=== PATIENT | female | born 1985 | race Caucasian/White ===

== ENCOUNTER 2024-05-05 16:40 | Outpatient (CLI) | payer BC, SELFPAY ==
[2024-05-06 01:17] LABS: Chlamydia DNA Amplified* NOT DETECTED (No Detected); GC DNA Amplified* NOT DETECTED (No Detected)
== END 2024-05-05 16:41 | disposition home or self-care (01) ==
PROVIDERS: Visit Provider Physician Assistant
DX: Z34.91 Encounter for supervision of normal pregnancy, unspecified, first trimester (principal); Z3A.08 8 weeks gestation of pregnancy
CPT/HCPCS: 76817; 86592; 86703; 86704; 86706; 86762; 86787; 86803; 86850; 86900; 86901; 87086; 87340; 87491; 87591

== ENCOUNTER 2024-07-15 09:11 | Outpatient (CLI) | payer BC, SELFPAY | END 2024-07-15 09:12 | disposition home or self-care (01) | LOC: US 09:11 | PROVIDERS: Visit Provider Obstetrics & Gynecology | DX: O09.522 Supervision of elderly multigravida, second trimester (principal); Z3A.18 18 weeks gestation of pregnancy | CPT/HCPCS: 76811 ==

== ENCOUNTER 2024-10-05 08:47 | Outpatient (CLI) | payer BC, SELFPAY | END 2024-10-05 08:48 | disposition home or self-care (01) | LOC: NFLDREF 10-09 02:16 | PROVIDERS: Visit Provider Obstetrics & Gynecology | DX: Z34.93 Encounter for supervision of normal pregnancy, unspecified, third trimester (principal) | CPT/HCPCS: 86592 ==

== ENCOUNTER 2024-10-19 10:13 | Outpatient (CLI) | payer BC, SELFPAY ==
[2024-10-19] VITALS (15 sets, daily range): BP systolic 118–138; BP diastolic 63–80; PULSE 79–91; RESP 16; TEMP 36.9; O2SAT 95
[2024-10-19 10:44] LABS: Hematocrit 39.5 % (33.0-51.0); Hemoglobin* 13.3 gm/dL (12.0-16.0); Mean Corpuscular HGB Conc 34 gm/dL (32-36); Mean Corpuscular Hemoglobin 29 pg (26-34); Mean Corpuscular Volume 86 fL (80-100); Platelet Count* 250 K/uL (140-440); Red Blood Count 4.59 m/uL (4.00-5.20); White Blood Count* 8.46 K/uL (4.50-11.00)
[2024-10-19 10:54] LABS: Slide Review Reflex No
[2024-10-19 10:56] LABS: Alanine Aminotransferase* 15 U/L (4-35); Aspartate Amino Transferase* 19 U/L (12-35); Blood Urea Nitrogen* 6 mg/dL (5-24); Creatinine* 0.4 mg/dL (0.5-1.5); Estimated Glomerular Filt Rate 130 ml/min
[2024-10-19 11:11] LABS: Total Protein Urine < 5 mg/dL
[2024-10-19 11:12] LABS: Creatinine Urine 140.8 mg/dL; Protein Creatinine Ratio Urine 0.04 (0-0.19)
[2024-10-19 11:34] LABS: Appearance Urine Clear (Clear); Bilirubin Urine Negative (Negative); Blood Urine Negative (Negative); Color Urine Yellow (Yellow); Glucose Urine 2+ (Negative); Ketones Urine 2+ (Negative); Leukocyte Esterase Urine Negative (Negative); Nitrite Urine Negative (Negative); Protein Urine Trace (Negative); Specific Gravity Urine 1.025 (1.000-1.030); Urobilinogen Urine 0.2 (0.2-1.0); pH Urine 6.5 (5.0-8.5)
[2024-10-19 11:42] LABS: Bacteria Urine Few; RBC Urine 0-2 (0-2); Squamous Epithelial Cell Urine Many (None-Few)
--- NOTE | 2024-10-19 16:01 | PC.OBNST ---
NST Note NST Note Start: 10/19/24 10:26 Freq: ONCE Status: Active Protocol: Document 10/19/24 13:45 WK (Rec: 10/19/24 16:01 WK Desktop) NST Note 6 Para (# of births) 4 EDC 12/15/24 Gestational Age In Weeks & Days 31 Weeks & 6 Days Patient Presented with Complaint(s) of Other Other Complaints Pt was seen in the clinic for a routine visit and had severe BP's x2. Came to the Center for extended BP monitoring and pre-E labs. Reactive Yes RN Marquise RNC Date 10/19/24 Reactive Yes RN Varsha RN Date 10/19/24 OB NST charge Yes Complete NST Note via Write Note Yes The provider's electronic signature indicates the NST is reactive/appropriate for gestational age. *Note to provider: If an addendum is required, open the patient's chart and click on the note under the Nurse/Allied Health tab.
== END 2024-10-19 14:05 | disposition home or self-care (01) ==
LOC: OB OUT 10:16 → OB 10:18
PROVIDERS: Obstetrics & Gynecology; Visit Provider Obstetrics & Gynecology
DX: O09.523 Supervision of elderly multigravida, third trimester (principal); O24.419 Gestational diabetes mellitus in pregnancy, unspecified control; Z3A.31 31 weeks gestation of pregnancy
CPT/HCPCS: 36415; 59025; 81001; 81003; 82565; 82570; 84156; 84450; 84460; 84520; 85027; 87086; G0463

== ENCOUNTER 2024-10-26 12:57 | Outpatient (CLI) | payer BC, SELFPAY ==
--- NOTE | 2024-10-26 13:00 | CRLHL7_ITS ---
For Patients: As a result of the Century Cures Act, medical imaging exams and procedure reports are released immediately into your electronic medical record. You may view this report before your referring provider. If you have questions, please contact your health care provider. OBSTETRICAL ULTRASOUND CLINICAL HISTORY: GDM, AMA, BMI. KENJI by US: 12/15/2024. GA:32w, 6d. FINDINGS: position: Vertex. Visualized. Technique: Transabdominal. Length of closed cervix: 4.9 cm. Amniotic Fluid: 5.2 cm SDP (greater than/equal to: 2- less than 8 cm). BPD: 8.3 cm. 33w 1d, 53.0 percent. HC: 32.1 cm. 36w 2d, 91.6 percent. AC: 31.5 cm. 35w 3d, 79.7 percent. FL: 6.1 cm. 31w 5d, 12.9 percent. FL/AC: 19.4 percent. HC/AC Ratio: 1.02. Heart rate: 145 beats per minute. age by this US: 34w 1d. KENJI by this US: 12/06/2024 EFW: 2396g. Weight: 5lbs, 5oz. Percentile by KENJI: 83.5 percent. IMPRESSION: Single live intrauterine gestation at 34 weeks 1 day KENJI of 12/06/2024. Estimated weight 2396 grams which lies at the 84th percentile. Joann Perez M.D. Diagnostic/Breast Radiologist [email or web address] Transcribed: 8:55 a.m. JR/Dictated by: Joann Perez MD @ 10/27/2024 5:55:00 AM (Electronically Signed)
== END 2024-10-26 12:58 | disposition home or self-care (01) ==
LOC: US 12:57
PROVIDERS: Visit Provider Obstetrics & Gynecology
DX: O24.419 Gestational diabetes mellitus in pregnancy, unspecified control (principal); O09.523 Supervision of elderly multigravida, third trimester; Z3A.34 34 weeks gestation of pregnancy
CPT/HCPCS: 76816

== ENCOUNTER 2024-11-02 13:52 | Outpatient (CLI) | payer BC, SELFPAY ==
--- NOTE | 2024-11-02 14:00 | CRLHL7_ITS ---
For Patients: As a result of the Century Cures Act, medical imaging exams and procedure reports are released immediately into your electronic medical record. You may view this report before your referring provider. If you have questions, please contact your health care provider. OBSTETRICAL ULTRASOUND - BIOPHYSICAL PROFILE INDICATION: GDMA2 KENJI by US: 12/15/2024 Gestational age: 33 weeks 6 days GESTATION: Single COMPARISON: 10/26/2024 TECHNIQUE: Real-time peters-scale imaging of the fetus was performed transabdominal. FINDINGS: Cervix: Not visualized positioning: Vertex Amniotic fluid: 6.4 cm SDP BIOPHYSICAL PROFILE: Total score: 8 Gross body movements: 2 tone: 2 Respiratory activity: 2 Amniotic fluid SDP: 2 Placenta technique: Transabdominal Placenta position: Anterior heart rate: 147 bpm IMPRESSION: Normal biophysical profile score of 8/8. FISH SON M.D. Diagnostic Radiologist [email or web address] Transcribed: 4:[address]/Dictated by: Fish Son MD @ 11/02/2024 3:12:00 PM (Electronically Signed)
== END 2024-11-02 13:53 | disposition home or self-care (01) ==
LOC: US 13:52
PROVIDERS: Visit Provider Obstetrics & Gynecology
DX: O24.419 Gestational diabetes mellitus in pregnancy, unspecified control (principal); Z3A.33 33 weeks gestation of pregnancy
CPT/HCPCS: 76819

== ENCOUNTER 2024-11-10 09:15 | Outpatient (CLI) | payer BC, SELFPAY ==
--- NOTE | 2024-11-10 09:15 | CRLHL7_ITS ---
For Patients: As a result of the Cures Act, medical imaging exams and procedure reports are released immediately into your electronic medical record. You may view this report before your referring provider. If you have questions, please contact your health care provider. OB ULTRASOUND BIOPHYSICAL PROFILE 11/10/2024 CLINICAL HISTORY: GDMA 2. TECHNIQUE: Transabdominal real time peters scale imaging of the fetus was performed. COMPARISON: 11/02/2024, 10/26/2024. FINDINGS: KENJI by US: 12/15/2024. GA: 35 weeks 0 days. Gestation: Single. Cervix: Not visualized. Position: Vertex. Amniotic Fluid: 4.8 cm. Placenta: Technique: TA. Placenta Position: Anterior. Dopplers: Heart Rate: 145 bpm. BIOPHYSICAL PROFILE: Total Score: 8 Gross Body Movements: 2 Tone: 2 Respiratory Activity: 2 Amniotic Fluid: 2 IMPRESSION: Normal biophysical profile score of 8/8. Fish Kirk M.D. Diagnostic Radiologist [email or web address] Transcribed: 11:36 am DW/Dictated by: Fish Kirk MD @ 11/10/2024 10:26:00 AM (Electronically Signed)
== END 2024-11-10 09:16 | disposition home or self-care (01) ==
LOC: US 09:16
PROVIDERS: Visit Provider Obstetrics & Gynecology
DX: O24.419 Gestational diabetes mellitus in pregnancy, unspecified control (principal); Z3A.35 35 weeks gestation of pregnancy
CPT/HCPCS: 76819

== ENCOUNTER 2024-11-16 12:55 | Outpatient (CLI) | payer BC, SELFPAY ==
--- NOTE | 2024-11-16 13:00 | CRLHL7_ITS ---
For Patients: As a result of the Cures Act, medical imaging exams and procedure reports are released immediately into your electronic medical record. You may view this report before your referring provider. If you have questions, please contact your health care provider. OBSTETRICAL ULTRASOUND ??? BIOPHYSICAL PROFILE INDICATION: Gestation diabetes mellitus. Advanced maternal age. KENJI by US: 12/15/2024 Gestational age: 35 weeks 6 days FETUS: Single COMPARISON: 11/10/2024, 11/02/2024, 10/26/2024. TECHNIQUE: Real-time peters-scale imaging of the fetus was performed transabdominal. FINDINGS: Cervix: Not visualized positioning: Vertex Amniotic fluid: 4.8 cm SDP BIOPHYSICAL PROFILE: Total score: 8 Gross body movements: 2 tone: 2 Respiratory activity: 2 Amniotic fluid SDP: 2 Placenta technique: Transabdominal Placenta position: Anterior heart rate: 138 bpm IMPRESSION: Normal biophysical profile score of 8/8. FISH SON M.D. Diagnostic Radiologist [email or web address] Transcribed: 3:[address]/Dictated by: Fish Son MD @ 11/16/2024 2:02:00 PM (Electronically Signed)
== END 2024-11-16 12:56 | disposition home or self-care (01) ==
LOC: US 12:56
PROVIDERS: Visit Provider Obstetrics & Gynecology
DX: O24.419 Gestational diabetes mellitus in pregnancy, unspecified control (principal); O09.523 Supervision of elderly multigravida, third trimester; Z3A.35 35 weeks gestation of pregnancy
CPT/HCPCS: 76819

== ENCOUNTER 2024-11-16 14:06 | Outpatient (CLI) | payer BC, SELFPAY ==
[2024-11-17 11:04] LABS: Strep B Susceptibility Needed? No
[2024-11-17 15:16] LABS: Strep B DNA Probe Negative (Negative)
== END 2024-11-16 14:07 | disposition home or self-care (01) ==
PROVIDERS: Visit Provider Obstetrics & Gynecology
DX: Z34.83 Encounter for supervision of other normal pregnancy, third trimester (principal)
CPT/HCPCS: 82565; 82570; 84156; 84450; 84460; 84520; 87081; 87653

== ENCOUNTER 2024-11-20 09:10 | Outpatient (CLI) | payer BC, SELFPAY | END 2024-11-20 09:11 | disposition home or self-care (01) | PROVIDERS: Visit Provider Obstetrics & Gynecology | DX: Z34.93 Encounter for supervision of normal pregnancy, unspecified, third trimester (principal); Z3A.36 36 weeks gestation of pregnancy | CPT/HCPCS: 82565; 82570; 84156; 84450; 84460; 84520; 84550 ==

== ENCOUNTER 2024-11-24 05:45 | Inpatient (IN) | payer BC, SELFPAY ==
[2024-11-24] VITALS (19 sets, daily range): BP systolic 106–133; BP diastolic 67–81; PULSE 62–80; RESP 16–18; TEMP 36.4–37.6; O2SAT 96–99; BMI 33.5
[2024-11-24] MEDS: LACTATED RINGERS 1000 ML 1,000 ML IV (06:15)
[2024-11-24 06:23] LABS: Basophils Absolute Auto 0.04 K/uL (0.00-0.30); Basophils Percent Auto 0.5 % (0.0-3.0); Eosinophils Percent Auto 1.4 % (0.0-7.0); Hematocrit 37.3 % (33.0-51.0); Hemoglobin* 12.5 gm/dL (12.0-16.0); Immature Granulocytes Abs Auto 0.05 K/uL (0.00-0.30); Immature Granulocytes Pct Auto 0.7 %; Lymphocytes Absolute Auto 1.74 K/uL (0.90-2.90); Lymphocytes Percent Auto 23.7 % (20-44); Mean Corpuscular HGB Conc 34 gm/dL (32-36); Mean Corpuscular Hemoglobin 29 pg (26-34); Mean Corpuscular Volume 86 fL (80-100); Monocytes Percent Auto 7.6 % (0.0-11.0); Neutrophils Absolute Auto 4.84 K/uL (1.7-7.0); Neutrophils Percent Auto 66.1 % (42.0-72.0); Platelet Count* 248 K/uL (140-440); Red Blood Count 4.35 m/uL (4.00-5.20); White Blood Count* 7.33 K/uL (4.50-11.00)
[2024-11-24 06:24] LABS: Slide Review Reflex No
--- NOTE | 2024-11-24 07:08 | P.OBHP_ITS ---
OB - H&P: HPI History of Present Illness Chief complaint: MATERNITY Narrative: Megha Vo is a 39 year old female at 37w0d GA seen in pre-op prior to planned repeat and bilateral salpingectomy. is complicated by history of C/S x4 (thin ABHINAV), preeclampsia without severe features, AMA, GDMA1, obesity, suspected perimembranous VSD that appeared to be resolved on subsequent US. Her complete H&P was dictated by Dr. Carlos on 11/16/23. Patient is feeling well today, though somewhat anxious for 1st surgery. She denies any regular/painful uterine contractions, vaginal bleeding or leaking of fluid. She has had brown spotting for the last few days but denies any liam bleeding. She denies headache, vision changes or RUQ pain. BPs at home have been within normal limits. She notes her blood glucose have continued to be adequately controlled with diet/exercise. Patient affirms her decision for repeat with bilateral salpingectomy (versus tubal ligation, only if I cannot safely accessible tube) this morning. We discussed risks of the procedure including bleeding, infection, damage to surrounding structures in detail. Emphasized how these risks are increased in the setting of 4 prior C/S, but that there are many safety steps in the procedure to minimize these risks. All questions answered. Written consent was signed. Specific Issues/Plans Partner: Vicente Children: Luis, Milana, Jerome and Natasha. Baby: Boy! H&P: 11/16/[address] Carlos # History of x4 * Thin uterine segment was noted at time of last * Initial for impacted head, failed with 2nd for intolerance to labor * Likely bilateral salpingectomy at time of repeat as of 09/21 * Delivery at 38 weeks. #10/19/24 Elevated BP without diagnosis of HTN - severe range at 31w6d -> triage - BP's on L&D 130s/60s-70s - Labs: Plts 250K, BUN 6, creatinine 0.4, AST 19, ALT 15 Urine P/C: 0.04 - elevated blood pressure and PC ratio 0.41 on 11/16/2024, diagnosis made of PREECLAMPSIA WITHOUT SEVERE FEATURES. Recommend moving up delivery to 37 weeks gestation, on . - BEGIN TWICE WEEKLY ANTEPARTUM TESTING AND HOME BLOOD PRESSURE MONITORING #GDM - only started monitoring at 32 weeks * 1hr gtt 207 * Nutrition consult placed: 10/05/24, completed 10/19/24 * All fasting values elevated on 10/26 (95-126mg/dL) and 6/12 postprandial values elevated. PP values have improved since nutrition consult * Refer to January for insulin initiation - likely just NPH at bedtime given elevated fasting values and time sensitive nature of GDMA2 * 11/02: Improved blood sugars. only 2 out of last 8 fastings were elevated. Only 3/ post prandials elevated. Will re-evaluate in 1 week, education was provided so we can start insulin at any time * Recommended twice weekly testing per protocol for GDMA2, after shared decision making will do once weekly * 11/10: All fastings were normal. 12/25 post prandials mildly elevated. Will continue with diet and exercise treatment only and re-evaluate in 1 week. * Delivery @ 39 - 40.6 weeks (patient will be delivered at 38 weeks for hx of CD x4) # AMA * cf DNA testing: No increased risk for aneuploidy. Male. * Level 2 ultrasound: membranous VSD as described below # basal cell skin cancer/face, has upcoming Mohs procedure: cancelled, will do after . # obesity, BMI 32.9 * Hgb A1-C: 5.4% # Suspected perimembranous ventricular septal defect on level 2 US. * echo with [facility] 07/20/2024: Possible small perimembranous VSD, everything else is normal. Repeat echo in 6 weeks on 08/28/24 * 07/15/2024 Cell free DNA screening: no increased risk for aneuploidy, male. * Repeat ultrasound here with [facility] in 4 weeks to re-evaluate growth and anatomy: Patient declined due to financial reasons but has a repeat LVL 2 on 08/14/24. * 07/17/24: Likely small perimembranous ventricular septal defect, otherwise normal cardiac anatomy. Follow-up echo is recommended in 6 weeks (schedule for 08/28/24) Level 2 ultrasound 07/15/2024: Anterior placenta without previa, normal fluid, AC 67%, EFW 39%. Suspected perimembranous ventricular septal defect. Growth US at 33 weeks given GDMA2: EFW 2396g at 84%ile. . Immunizations: Flu: 07/27/24 COVID: 07/27/24 RSV: 10/26/24 Tdap: 10/05/24 Hgb: 11/10/24 12.7 GBS: 11/16/2024 PFSH PFS Surgical History History of ?Z98.891 - History of uterine scar from previous surgery (ICD-10) Social History Narrative: Occupation: [employer] mom. Marital status: . Catholic/cultural needs: Yes, will need to clarify. Chemical or radiation exposure: no. Pre- tobacco use: no. Pre- alcohol use: no. Current tobacco use: no. Current alcohol use: no. Recreational drug use: no. Dietary restrictions: no. Blood transfusion acceptable in an emergency: yes. PSYCHOSOCIAL HISTORY: History of depression or currently depressed: no. Current or past physical, emotional, or sexual mistreatment: no. Problems that will make it hard to make it to appointments: no. What is your current living situation?: I presently have a place to live Problems where you live: no known problems In the past 12 months, utilities in danger of being shut off: no In past 12 months, lack of transportation kept you from medical appts, meetings, work, or getting things needed for daily living: no In the past 12 mos, have been you worried that your food would run out before you had money to buy more?: never true In the past 12 mos, the food you bought just didn't last and you didn't have money to buy more?: never true Smoking Status: Never smoker How often does anyone, including family, friends and others, physically hurt you : never How often does anyone, including family, friends and others, insult or talk down to you: never How often does anyone, including family, friends and others, threaten you with harm: never How often does anyone, including family, friends and others, scream or curse at you: never Meds Home Medications and Allergies Home Medications ?Medication ?Instructions ?Recorded ?Confirmed ?Type GWY-avus-PE-omega 3-fat com #1 27 1 cap PO DAILY 05/05/24 11/24/24 History mg-1 mg-300 mg capsule Allergies Allergy/AdvReac Type Severity Reaction Status Date / Time No Known Drug Allergies Allergy Verified 11/20/24 07:57 OB - H&P: Exam Physical Exam: Vital signs: Temp Pulse BP 99.7 F H 80 127/74 11/24/24 06:26 11/24/24 06:26 11/24/24 06:26 Narrative: Physical exam: General: No acute distress Psych: Alert and oriented x3, full affect Abdomen: Gravid. Otherwise soft and nontender. heart rate: Reactive NST. Baseline of 130 beats per minute, moderate variability, accelerations present, decelerations absent. OB - Results Labs Labs: Short CBC 11/24/24 Range/Units 06:15 WBC 7.33 (4.50-11.00) K/uL Hgb 12.5 (12.0-16.0) gm/dL Hct 37.3 (33.0-51.0) % Plt Count 248 (140-440) K/uL Assessment and Plan Assessment and plan (1) Pre-eclampsia affecting , antepartum: Status: Acute (2) Gestational diabetes: Status: Acute (3) care: Status: Acute (4) Previous delivery affecting : Problem comment: X 4 Status: Acute (5) AMA (advanced maternal age) multigravida 35+: Status: Acute Plan Proceed with repeat delivery and bilateral salpingectomy, written consent obtained. Plan perioperative Ancef. Blood type O positive, active type and screen was drawn this morning. Diligent blood pressure monitoring ongoing. Plan to 2 hour GTT in the hospital vs at 2 or 6 week visits.
[2024-11-24 07:31] LABS: Creatinine* 0.5 mg/dL (0.5-1.5); Est. Creatinine Clearance* 115.12; Estimated Glomerular Filt Rate 123 ml/min
[2024-11-24 07:32] LABS: Alanine Aminotransferase* 10 U/L (4-35); Aspartate Amino Transferase* 16 U/L (12-35); Blood Urea Nitrogen* 6 mg/dL (5-24)
[2024-11-24] MEDS: CEFAZOLIN 2 GM INJ IVP (07:35)
[2024-11-24] MEDS: LACTATED RINGERS 500 ML 500 ML 125 ML IV ×2 (07:42→11:45)
[2024-11-24] MEDS: KETOROLAC 30 MG/ML inj IVP ×3 (08:37→20:32)
--- NOTE | 2024-11-24 08:56 | PM.OBPRCCS ---
Procedure Date of procedure: 11/24/[address] [facility] bill your pro fee for this procedure?: Yes Blood Loss Measurement Type: QBL (436) Bakri Used: No IV fluids (mL): 1,400 Urine Output (mL): 50 Urine Output Comment: Clear, yellow Surgeon: Osiel Mackenzie MD Civil Engineering Drafter: Rena Ford Anesthesia Type: Spinal Findings: Thickening of the rectus abdominis fascia and musculature consistent with adhesions Unremarkable uterus, bilateral fallopian tubes and ovaries Liveborn male fetus Procedure Name: Repeat delivery, bilateral salpingectomy Procedure Description: Patient was taken to the operating room with IV running. She received cefazolin in preoperative prophylaxis. Spinal anesthesia was administered. Hugo catheter was inserted. She was prepped and draped in the usual sterile fashion. Anesthesia was tested and found to be adequate. A low-transverse skin incision was made with a scalpel through a prior incision, and carried through to the underlying layer of fascia with the scalpel. The subcutaneous fat was dissected off the underlying fascia with Bovie and blunt dissection. The fascia was nicked in the midline with a scalpel, and this incision was extended laterally with scissors. The rectus muscles were in the midline, moderate adhesive disease noted. A krishan clamp was utilize to bluntly dissect the peritoneum, ultimately identified and entered bluntly. Bovie was used to widen this opening laterally. Abraham O retractor was inserted and tightened down, providing excellent visualization of the lower uterine segment. The bladder reflection was found to be advanced along the lower uterine segment. A bladder flap was created with a combination of sharp and blunt dissection. Low-transverse uterine incision was made with a scalpel. Incision was widened bluntly. The infant's head was grasped through the hysterotomy and elevated to the hysterotomy. The remainder of the body delivered without incident with the help of fundal pressure. No nuchal cord was noted. Cord was clamped and cut after 30 seconds. was handed off to attending nurses. The placenta was delivered with gentle traction on the cord. The uterus was cleaned of all clots and debris with the dry lap pad x2. The hysterotomy was reapproximated with 0 Vicryl in a running, locked fashion. Second layer of the same suture was used in imbricating fashion to obtain hemostasis. Ongoing bleeding was noted from a vessel just lateral to the left hysterotomy closure. The posterior aspect of the uterus and broad ligament was reflected posteriorly with gentle pressure. A window in the broad ligament was developed with gentle pressure, where an [place] stitch with 0 vicryl was performed from the left lateral uterine body just inferior to hysterotomy closure out through the broad. A figure of eight stitch was applied and secured. Inspection of the site confirmed excellent hemostasis, the posterior uterus and broad ligament was inspected and noted to be clear. The adnexa were examined and noted to be normal in appearance. Patient affirmed her desire to be surgically sterilized. Attention was first turned to the right fallopian tube, which was sequentially ligated and transected from the mesosalpinx using the Ligasure cautery device. We proceeded from the fimbriated end, lateral to medial, and the tube was amputated at the right uterine cornua. The same procedure was repeated on the patient's left side, and the left fallopian tube was also amputated at the cornua. Both specimens were sent for pathologic evaluation. The cul-de-sac and gutters were cleansed with dampened laparotomy sponge, removing any further clots and debris. Excellent hemostasis was noted at all surgical sites. The Abraham O retractor was removed. The hysterotomy was reexamined and found to be hemostatic. The rectus muscles were examined and found to be hemostatic. The fascia was reapproximated with looped 0 PDS in a running fashion. Subcutaneous fat was irrigated and Bovie used on oozing vessels. The subcutaneous fat was reapproximated with 2 0 vicryl suture in an interrupted fashion. The skin was closed with a subcuticular stitch of 3-0 monocryl. Surgical glue was applied above this. Patient tolerated procedure well was taken to recovery area in stable condition. Surgical debrief was completed. details: - Liveborn male fetus - weight: 6lb 9oz - APGARs were 7 and 9 at 1 and 5 minutes respectively Complications: None Pathology: specimen obtained, sent to pathology Surgery Debrief Performed: Yes Condition: stable Disposition: floor Infant total score - 1 minute: 7 total score - 5 minute: 9
--- NOTE | 2024-11-24 08:57 | P.ANES_ITS ---
Anesthesia Charges Start Date/Time Anesthesia Start Date: 11/24/24 Anesthesia Start Time: 07:16 Stop Date/Time Anesthesia Stop Date: 11/24/24 Anesthesia Stop Time: 08:55 Coding CPT Codes CPT Codes: ANESTH CS DELIVERY - 54993 ([id number]) P2 - PATIENT W/MILD SYST DISEASE, QK - TEACHER OF THE VISUALLY IMPAIRED 2-4 CNCRNT ANES PROC, QX - BACK TACKER SVC W/ MD MED DIRECTION
--- NOTE | 2024-11-24 08:57 | W.ANESCHARGE ---
Anesthesia Charges Start Date/Time Anesthesia Start Date: 11/24/24 Anesthesia Start Time: 07:16 Stop Date/Time Anesthesia Stop Date: 11/24/24 Anesthesia Stop Time: 08:55 Coding CPT Codes CPT Codes: ANESTH CS DELIVERY - 70051 ([id number]) P2 - PATIENT W/MILD SYST DISEASE, QK - VISION MIXER 2-4 CNCRNT ANES PROC, QX - COORDINATOR OF LIBRARY SERVICES SVC W/ MD MED DIRECTION
--- NOTE | 2024-11-24 08:59 | P.ANES_ITS ---
Anesthesia Charges Start Date/Time Anesthesia Start Date: 11/24/24 Anesthesia Start Time: 07:16 Stop Date/Time Anesthesia Stop Date: 11/24/24 Anesthesia Stop Time: 08:55 Coding CPT Codes CPT Codes: ANESTH CS DELIVERY - 58878 ([id number]) QK - PROPOSAL REVIEW ANALYST 2-4 CNCRNT ANES PROC, QX - FOOD CROPS FARM HAND SVC W/ MD MED DIRECTION, P2 - PATIENT W/MILD SYST DISEASE
--- NOTE | 2024-11-24 08:59 | W.ANESCHARGE ---
Anesthesia Charges Start Date/Time Anesthesia Start Date: 11/24/24 Anesthesia Start Time: 07:16 Stop Date/Time Anesthesia Stop Date: 11/24/24 Anesthesia Stop Time: 08:55 Coding CPT Codes CPT Codes: ANESTH CS DELIVERY - 38669 ([id number]) QK - CONCRETE FINISHING MACHINE OPERATOR 2-4 CNCRNT ANES PROC, QX - GLOBAL SUPPLY CHAIN DIRECTOR SVC W/ MD MED DIRECTION, P2 - PATIENT W/MILD SYST DISEASE
--- NOTE | 2024-11-24 09:00 | W.PM.NB ---
Nerve Block Nerve Block Time Seen by Provider: 08:45 Date Seen: 11/24/24 Type of block requested by surgeon for post-operative analgesia: TAP Side: bilateral Time out performed: Yes Verification of patient name: Yes Verification of date of : Yes Site marking: site marked Name of person performing procedure: Noe Messina Continuous monitoring Was continuous monitoring of O2 sat, B/P, deputy sheriff generalist/bailiff, recorded every 15 minutes?: Yes Procedure Checklist: sterile prep, needles and gloves Ultrasound guided. Images saved: Yes Medications given in 5ml increments after negative aspiration: Marcaine %: 0.25 mL: 30 Needle gauge: 20 and Exparel mL: 10 Needle gauge: 20 Patient tolerated procedure well: Yes Additional comments: Injected in 5 mL increments after negative aspiration Block Charges Block Charge (with Pro Fee): TAP Bilateral Use of Ultrasound Machine for Block: Yes- US Guidance/pain block
[2024-11-24] MEDS: ACETAMINOPHEN 500 MG TABLET 1000 MG PO ×2 (10:35→18:25)
[2024-11-24 12:03] LABS: Total Protein Urine 32 mg/dL
[2024-11-24 12:04] LABS: Creatinine Urine 60.9 mg/dL; Protein Creatinine Ratio Urine 0.53 (0-0.19)
[2024-11-24] MEDS: SODIUM CHLORIDE 0.9 % (FLUSH) 10 ML SYRINGE IVF (20:32)
[2024-11-25 00:16] VITALS: BP 124/74; PULSE 74; RESP 16; TEMP 36.8; O2SAT 97
[2024-11-25] MEDS: ACETAMINOPHEN 500 MG TABLET 1000 MG PO ×3 (00:21→18:09)
[2024-11-25] MEDS: KETOROLAC 30 MG/ML inj IVP ×3 (02:36→15:19)
[2024-11-25 03:50] VITALS: BP 119/77; PULSE 79; RESP 20; TEMP 36.3; O2SAT 97
[2024-11-25 06:33] LABS: Hemoglobin* 10.7 gm/dL (12.0-16.0)
[2024-11-25 07:53] VITALS: BP 118/81; PULSE 78; RESP 16; TEMP 36.6; O2SAT 97
[2024-11-25] MEDS: DOCUSATE SODIUM 100 MG CAPSULE PO (09:17)
--- NOTE | 2024-11-25 11:28 | P.OBPN_ITS ---
OB - PN:Subj Subjective Date Seen: 11/25/24 Narrative: Megha is a 39 y.o. who was admitted to L & D for repeat C/S.? She had an uncomplicated repeat .? ?She was diagnosed with GDMA1 during her and preeclampsia. Blood pressures are stable and fasting glucose is 85 today. Planning to do 2 hour gtt tomorrow morning. The patient feels well.? The pain is well controlled with current medications.? She has no new complaints.? She is breast feeding and reports things are going well.? the patient has done well.? Vitals have been stable.? She has remained afebrile.? Has a good appetite, is tolerating a general diet.? She is voiding without difficulty.? She is passing gas and has not had a bowel movement.? She is ambulating and denies any dizziness.? Has Small amount of rubra lochia.? OB - PN: Obj Exam 2 Physical Exam: Vital signs: Temp Pulse Resp BP Pulse Ox O2 Del Method 97.8 F 78 16 118/81 97 Room Air 11/25/24 07:53 11/25/24 07:53 11/25/24 07:53 11/25/24 07:53 11/25/24 07:53 11/25/24 07:53 Narrative: GENERAL APPEARANCE:? normal affect, alert, no distress MOOD:? appropriate CHEST:? clear to auscultation HEART:? regular rate and rhythm ABDOMEN:? soft, non-tender the uterine fundus is firm At Umbilicus, Midline and is appropriate for the stage of recovery. EXTREMITIES:? normal and trace edema Incision: dressing clean dry and intact, due to be removed today. OB - PN: Obj Data Labs Labs: Laboratory Results - last 24 hr 11/24/24 11/25/24 Unknown 06:14 Hgb 10.7 L Urine Creatinine 60.9 Protein/Creatinin Ratio 0.53 H Urine Total Protein 32 OB - PN: A/P Delivery Assessment and Plan (1) Pre-eclampsia affecting , antepartum: Status: Acute (2) Gestational diabetes: Status: Acute (3) care: Status: Acute (4) Previous delivery affecting : Problem details: X 4 Status: Acute (5) AMA (advanced maternal age) multigravida 35+: Status: Acute (6) care following delivery: Status: Acute (7) care and examination of lactating mother: Status: Acute Plan day: 1 Plan: routine care Comments: Assessment/Plan?G 6 P 5 status post uncomplicated repeat .? ?? 1.? Continue route PP cares? 2.? .? May see if desired? 3.? Anticipate discharge home tomorrow or the following day per pt preference? 4.? Acute anemia.? Iron supplement ordered 5. 2 hour GTT tomorrow morning, discussed with patient?
[2024-11-25 12:22] VITALS: BP 113/72; PULSE 76; RESP 18; O2SAT 98
[2024-11-25] MEDS: SODIUM CHLORIDE 0.9 % (FLUSH) 10 ML SYRINGE IVF (15:19)
[2024-11-25 16:36] VITALS: BP 119/76; PULSE 74; RESP 18; O2SAT 97
[2024-11-25 20:18] VITALS: BP 129/82; PULSE 76; RESP 16; TEMP 36.7; O2SAT 98
[2024-11-25] MEDS: IBUPROFEN 600 MG TABLET PO (21:21)
[2024-11-26] MEDS: ACETAMINOPHEN 500 MG TABLET 1000 MG PO ×3 (00:15→13:21)
[2024-11-26 00:17] VITALS: BP 122/82; PULSE 71; RESP 16; TEMP 36.9
[2024-11-26 02:30] LABS: Rapid Plasma Reagin (RPR) Non Reactive (Non Reactive)
[2024-11-26] MEDS: IBUPROFEN 600 MG TABLET PO ×2 (03:31→10:10)
[2024-11-26 03:40] VITALS: BP 117/81; PULSE 70; RESP 18; TEMP 36.6
[2024-11-26 06:37] LABS: Glucose Fasting 77 mg/dl (70-95)
[2024-11-26 08:35] LABS: Glucose 2 Hour 161 mg/dl (70-155)
--- NOTE | 2024-11-26 08:41 | PM.OBDSVD1 ---
Documented by User: Sabi Murphy 11/26/24 08:55 DS: Providers Provider Time Seen by Provider: 08:41 Date Seen: 11/26/24 Date of admission: 11/24/24 05:45 Primary care physician: Not a Local Provider Admitting Clinician: Sadie Mackenzie MD Attending Physician on discharge: Ninoska Frye Date of Discharge: 11/26/24 DS: Diagnosis Discharge Diagnosis (1) care and examination of lactating mother: Status: Acute (2) care following delivery: Status: Acute (3) Gestational diabetes: Status: Acute (4) Pre-eclampsia affecting , antepartum: Status: Acute Exam Narrative: Exam Narrative: Discharge instructions were reviewed with the patient including signs and symptoms of infection and home going medications Lifting Restrictions: 20 pounds for 6 weeks No not submerge incision under water X 2 weeks? Nothing vaginally for 6 weeks: no tampons or intercourse Do not drive while taking narcotic pain medication(s) Off Work or School for 8 weeks 2-week visit: incision check, discuss infant feeding concerns, review control options and screen for anxiety/depression. 6-week visit for an annual exam. consultation services are available to all mothers and babies for the first year after delivery.? To make an appointment, please call [phone]. Const: Vital Signs, click to edit/add: Vital Signs - 24 hr 11/25/24 12:22 11/25/24 16:36 11/25/24 20:18 Temperature 98.1 F Pulse Rate [Pulse Oximeter] 76 74 76 Respiratory Rate 18 18 16 Blood Pressure [Ri ght Arm] 113/72 119/76 129/82 Pulse Oximetry 98 97 98 Oxygen Delivery Me thod Room Air Room Air Room Air 11/26/24 00:17 11/26/24 03:40 Temperature 98.5 F 97.8 F Pulse Rate [Pulse Oximeter] 71 70 Respiratory Rate 16 18 Blood Pressure [Ri ght Arm] 122/82 117/81 Pulse Oximetry Oxygen Delivery Me thod Room Air Room Air OB - DS: Summary Hospital Course Hospital Course: The patient is a 39 year old G 6 P 5 at 37 weeks gestation that was admitted to the Center on 11/24/24 for repeat Caesarean section with bilateral salpingectomy. Procedure had no complications She delivered a viable male infant. She is breast feeding. the patient has done well. Peripartum Data Infant delivery method: Repeat Section Procedures: Procedures Operation Date: 11/24/24 07:15 Actual Procedure Side Surgeon p Repeat Section, bilateral salpingectomy Sadie Mackenzie MD Procedures: tubal ligation/salpingectomy complications: none [place] Infant Gender: Male Infant Discharge Plan: Home Status at Discharge Functional status at discharge: independent ambulation Overall status at discharge: patient is progressing back to baseline Time Spent with Patient Time attestation: Total time spent providing and/or coordinating discharge services: Time spent: Less than 30 minutes Discharge Plan Discharge Disposition: Home, Self-Care Date of Admission: 11/24/24 05:45 Attending Provider on Discharge: Ninoska Frye Primary Care Provider: Provider,Not a Local Condition: Stable Anticipated Discharge Date/Time: 11/26/24 12:00 Discharge Medications: New docusate sodium 100 mg Capsule 100 mg PO DAILY Qty: 90 0RF ibuprofen 600 mg Tablet 600 mg PO Q6H PRN (Reason: Pain) Qty: 60 0RF acetaminophen 500 mg Tablet 1,000 mg PO Q6H PRN (Reason: Pain) Qty: 0 0RF Continued [id number] 3-fat com #1 27-1-300 mg capsule 1 cap PO DAILY Discontinued (DME) Blood Pressure Cuff Misc See Rx Instructions .Route Qty: 1 0RF Rx Instructions: As directed (DME) lancets Misc See Rx Instructions .MEDSUPPLY Qty: 100 3RF Rx Instructions: Test blood sugar 4 times daily. (DME) Test Strips Misc See Rx Instructions .MEDSUPPLY Qty: 100 3RF Rx Instructions: Test blood sugar 4 times daily. (DME) blood-glucose meter [Accu-Chek Guide Me Glucose Mtr] Misc See Rx Instructions .ROUTE .COMPLEX Qty: 1 0RF Dose Instruction: DIRECTED Rx Instructions: DIRECTED Discharge Orders: Discharge Order (Routine); Ordered 11/26/24 Ordered By: Ninoska Frye Patient Education: OB Over the Counter Medication Information, OB /Breast Feeding Additional Instructions: Discharge instructions were reviewed with the patient including signs and symptoms of infection and home going medications Lifting Restrictions: 20 pounds for 6 weeks No not submerge incision under water X 2 weeks? Nothing vaginally for 6 weeks: no tampons or intercourse Do not drive while taking narcotic pain medication(s) Off Work or School for 8 weeks [facility] for a BP check?3-5 DAYS Call with BP greater than or equal to 160/110 Severe headache that doesn't improve after taking medications Changes in vision, including temporary loss of vision, blurred vision, and/or light sensitivity Upper abdominal pain (usually under ribs on the right side) 2-week visit: incision check, discuss infant feeding concerns, review control options and screen for anxiety/depression. 6-week visit for an annual exam. consultation services are available to all mothers and babies for the first year after delivery.? To make an appointment, please call [phone]. Activity Level: Activity as Tolerated Discharge Diet: Regular Follow Up Appointments: [facility] [Provider Group] Forms: [employer] Info Instructions Documented by User: Ninoska Frye CNM 11/26/24 09:12 DS: Providers Provider Attending Physician on discharge: Ninoska Frye CNM DS: Diagnosis Discharge Diagnosis (1) care and examination of lactating mother: Status: Acute (2) care following delivery: Status: Acute (3) Gestational diabetes: Status: Acute (4) Pre-eclampsia affecting , antepartum: Status: Acute Exam Narrative: Exam Narrative: GENERAL APPEARANCE:? normal affect, alert, no distress MOOD:? appropriate CHEST:? clear to auscultation HEART:? regular rate and rhythm ABDOMEN:? soft, non-tender the uterine fundus is 1 below Umbilicus, Midline and is appropriate for the stage of recovery. EXTREMITIES:? normal and no edema INCISION: Healing well, no surrounding erythema, abnormal induration or discharge Const: Documenting provider has reviewed patient's vital signs: yes OB - DS: Summary Hospital Course Hospital Course: The patient is a 39 year old G 6 P 5 at 37 weeks gestation that was admitted to the Center on 11/24/24 for repeat Caesarean section with bilateral salpingectomy. Procedure had no complications She delivered a viable male infant. She is breast feeding. the patient has done well. Discharge home with baby.? Follow up in 2 weeks and 6 weeks.? , may see if needed? Hgb 10.7. ? Pre-E diagnosed by elevated BP greater than 4 hours apart? Labs WNL Discharge home with BP cuff if does not already have one? Follow up in 3-5 days? Call for signs/symptoms of preeclampsia? GDM. 2 hour gct completed in hospital, failed 2 hour with elevated at 2 hour dorian. Recommended follow-up with primary care. For pain control of perineum, breast and pelvic pain, take 600 mg Ibuprofen every 6 hours as needed by mouth or 1000 mg acetaminophen (Tylenol) every 6 hours by mouth as needed. You can alternate these so you are taking something every 3 hours as needed. A heating pad can also be used for your abdomen or breasts. You may also take docusate sodium up to twice daily to soften your stools and help to prevent constipation. You may wean off of it when your stools return to normal.? Discharge Plan Discharge Disposition: Home, Self-Care Date of Admission: 11/24/24 05:45 Attending Provider on Discharge: Ninoska Frye Primary Care Provider: Provider,Not a Local Condition: Stable Anticipated Discharge Date/Time: 11/26/24 12:00 Discharge Medications: New docusate sodium 100 mg Capsule 100 mg PO DAILY Qty: 90 0RF ibuprofen 600 mg Tablet 600 mg PO Q6H PRN (Reason: Pain) Qty: 60 0RF acetaminophen 500 mg Tablet 1,000 mg PO Q6H PRN (Reason: Pain) Qty: 0 0RF Continued [id number] 3-fat com #1 27-1-300 mg capsule 1 cap PO DAILY Discontinued (DME) Blood Pressure Cuff Misc See Rx Instructions .Route Qty: 1 0RF Rx Instructions: As directed (DME) lancets Misc See Rx Instructions .MEDSUPPLY Qty: 100 3RF Rx Instructions: Test blood sugar 4 times daily. (DME) Test Strips Misc See Rx Instructions .MEDSUPPLY Qty: 100 3RF Rx Instructions: Test blood sugar 4 times daily. (DME) blood-glucose meter [Accu-Chek Guide Me Glucose Mtr] Misc See Rx Instructions .ROUTE .COMPLEX Qty: 1 0RF Dose Instruction: DIRECTED Rx Instructions: DIRECTED Discharge Orders: Discharge Order (Routine); Ordered 11/26/24 Ordered By: Ninoska Frye Patient Education: OB Over the Counter Medication Information, OB /Breast Feeding Additional Instructions: Discharge instructions were reviewed with the patient including signs and symptoms of infection and home going medications Lifting Restrictions: 20 pounds for 6 weeks No not submerge incision under water X 2 weeks? Nothing vaginally for 6 weeks: no tampons or intercourse Do not drive while taking narcotic pain medication(s) Off Work or School for 8 weeks [facility] for a BP check?3-5 DAYS Call with BP greater than or equal to 160/110 Severe headache that doesn't improve after taking medications Changes in vision, including temporary loss of vision, blurred vision, and/or light sensitivity Upper abdominal pain (usually under ribs on the right side) 2-week visit: incision check, discuss feeding concerns, review control options and screen for anxiety/depression. 6-week visit for an annual exam. consultation services are available to all mothers and babies for the first year after delivery.? To make an appointment, please call [phone]. Activity Level: Activity as Tolerated Discharge Diet: Regular Follow Up Appointments: [facility] [Provider Group] Forms: My[employer] Info Instructions
[2024-11-26 09:23] VITALS: BP 118/74; PULSE 72; RESP 16; TEMP 36.8; O2SAT 98
[2024-11-26] MEDS: DOCUSATE SODIUM 100 MG CAPSULE PO (10:10)
[2024-11-26 12:11] LABS: Glucose Fasting Check 78 mg/dl (60-115)
== END 2024-11-26 13:30 | disposition home or self-care (01) | DRG 540 ==
PROVIDERS: Advanced Practice Midwife; Obstetrics & Gynecology; Admitting Provider Obstetrics & Gynecology; Visit Provider Obstetrics & Gynecology
PROC: 10D00Z1 Extraction of Products of Conception, Low, Open Approach (ICD-10-PCS; CPT 59514; principal; 2024-11-24 07:15)
DX: O34.211 Maternal care for low transverse scar from previous cesarean delivery (principal); O14.04 Mild to moderate pre-eclampsia, complicating childbirth; Z3A.37 37 weeks gestation of pregnancy; Z37.0 Single live birth; O24.420 Gestational diabetes mellitus in childbirth, diet controlled; O99.214 Obesity complicating childbirth; E66.9 Obesity, unspecified; G89.18 Other acute postprocedural pain; Z30.2 Encounter for sterilization; O90.81 Anemia of the puerperium; D64.9 Anemia, unspecified; K66.0 Peritoneal adhesions (postprocedural) (postinfection)
CPT/HCPCS: 01961; 36415; 64488; 76942; 82565; 82570; 82947; 82950; 84156; 84450; 84460; 84520; 85018; 85025; 86592; 86850; 86900; 86901; 88302; 88307; A4314; A9270; J0665; J0666; J0690; J1100; J1885; J2405; J2590; J7120

== ENCOUNTER 2024-11-28 12:56 | Inpatient (IN) | payer BC, SELFPAY ==
[2024-11-28] VITALS (14 sets, daily range): BP systolic 124–169; BP diastolic 85–104; PULSE 44–70; RESP 14–16; TEMP 36.5–37.2; O2SAT 97–100
[2024-11-28 12:11] LABS: Hematocrit 36.6 % (33.0-51.0); Hemoglobin* 12.1 gm/dL (12.0-16.0); Mean Corpuscular HGB Conc 33 gm/dL (32-36); Mean Corpuscular Hemoglobin 29 pg (26-34); Mean Corpuscular Volume 88 fL (80-100); Platelet Count* 296 K/uL (140-440); Red Blood Count 4.17 m/uL (4.00-5.20); White Blood Count* 6.09 K/uL (4.50-11.00)
[2024-11-28 12:14] LABS: Slide Review Reflex No
[2024-11-28 12:29] LABS: Aspartate Amino Transferase* 25 U/L (12-35); Creatinine* 0.9 mg/dL (0.5-1.5); Estimated Glomerular Filt Rate 84 ml/min
[2024-11-28 12:30] LABS: Alanine Aminotransferase* 19 U/L (4-35); Blood Urea Nitrogen* 13 mg/dL (5-24)
--- NOTE | 2024-11-28 12:54 | P.LDBA_ITS ---
Subjective History of Present Illness Narrative: Patient is being admitted to Labor and Delivery for preeclampsia with severe features. She is a 39-year-old G5 now P5 woman who is status post repeat with bilateral salpingectomy on 11/24/2024 at 37 weeks, 0 days gestation. This was her 5th . She was diagnosed with preeclampsia without severe features prior to that admission. She had an uncomplicated repeat with bilateral salpingectomy. She was discharged on postoperati ve day 2, 11/26/2024, without any antihypertensive medications. Today, she return to the Center for support and was found to have an elevated blood pressure, systolic 140s. Subsequently, she had two severe range elevations of blood pressures. She denies any headaches, visual changes, or right upper quadrant pain. Specific Issues/Plans Partner: Vicente Children: Luis, Milana, Jerome and Natasha. Baby: Boy! H&P: 11/16/[address] Carlos # History of x4 * Thin uterine segment was noted at time of last * Initial for impacted head, failed with 2nd for intolerance to labor * Likely bilateral salpingectomy at time of repeat as of 09/21 * Delivery at 38 weeks. #10/19/24 Elevated BP without diagnosis of HTN - severe range at 31w6d -> triage - BP's on L&D 130s/60s-70s - Labs: Plts 250K, BUN 6, creatinine 0.4, AST 19, ALT 15 Urine P/C: 0.04 - elevated blood pressure and PC ratio 0.41 on 11/16/2024, diagnosis made of PREECLAMPSIA WITHOUT SEVERE FEATURES. Recommend moving up delivery to 37 weeks gestation, on . - BEGIN TWICE WEEKLY ANTEPARTUM TESTING AND HOME BLOOD PRESSURE MONITORING #GDM - only started monitoring at 32 weeks * 1hr gtt 207 * Nutrition consult placed: 10/05/24, completed 10/19/24 * All fasting values elevated on 10/26 (95-126mg/dL) and 612 postprandial values elevated. PP values have improved since nutrition consult * Refer to January for insulin initiation - likely just NPH at bedtime given elevated fasting values and time sensitive nature of GDMA2 * 11/02: Improved blood sugars. only 2 out of last 8 fastings were elevated. Only 3/ post prandials elevated. Will re-evaluate in 1 week, education was provided so we can start insulin at any time * Recommended twice weekly testing per protocol for GDMA2, after shared decision making will do once weekly * 11/10: All fastings were normal. 12/25 post prandials mildly elevated. Will continue with diet and exercise treatment only and re-evaluate in 1 week. * Delivery @ 39 - 40.6 weeks (patient will be delivered at 38 weeks for hx of CD x4) # AMA * cf DNA testing: No increased risk for aneuploidy. Male. * Level 2 ultrasound: membranous VSD as described below # basal cell skin cancer/face, has upcoming Mohs procedure: cancelled, will do after . # obesity, BMI 32.9 * Hgb A1-C: 5.4% # Suspected perimembranous ventricular septal defect on level 2 US. * echo with Pediatric Cardiology 07/20/2024: Possible small perimembranous VSD, everything else is normal. Repeat echo in 6 weeks on 08/28/24 * 07/15/2024 Cell free DNA screening: no increased risk for aneuploidy, male. * Repeat ultrasound here with MFM in 4 weeks to re-evaluate growth and anatomy: Patient declined due to financial reasons but has a repeat LVL 2 on 08/14/24. * 07/17/24: Likely small perimembranous ventricular septal defect, otherwise normal cardiac anatomy. Follow-up echo is recommended in 6 weeks (schedule for 08/28/24) Level 2 ultrasound 07/15/2024: Anterior placenta without previa, normal fluid, AC 67%, EFW 39%. Suspected perimembranous ventricular septal defect. Growth US at 33 weeks given GDMA2: EFW 2396g at 84%ile. . Immunizations: Flu: 07/27/24 COVID: 07/27/24 RSV: 10/26/24 Tdap: 10/05/24 Hgb: 11/10/24 12.7 GBS: 11/16/2024 OB - Problem Based A/P Additional Plan (1) care and examination of lactating mother: Status: Acute (2) Pre-eclampsia affecting puerperium: Problem details: With severe features based on blood pressure criteria. Also with a rising creatinine to 0.9. Status: Acute Plan Readmit for preeclampsia with severe features. Begin magnesium sulfate infusion, with plan to last for at least 24 hours. Strict ins and outs. HELLP labs every 6 hours. Begin nifedipine ER 30 mg b.i.d.. Follow blood pressures during and after magnesium sulfate infusion. Anticipate discharge late tomorrow night or Saturday morning. OB Result Labs Labs: Labs from today at noon: Hemoglobin 12.1, platelets 296 BUN 13, creatinine 0.9, up from 0.54 days ago AST 25, ALT 19 OB Exam Physical Exam Vital signs: Temp Pulse Resp BP Pulse Ox O2 Del Method 98.9 F 51 L 14 165/98 H 98 Room Air 11/28/24 12:01 11/28/24 12:43 11/28/24 12:16 11/28/24 12:43 11/28/24 12:03 11/28/24 12:03 Narrative: Physical exam: General: No acute distress Psych: Alert and oriented x3, tearful HEENT: Normocephalic, atraumatic Heart: Regular rate and rhythm, no murmur rub or gallop Lungs: Clear to auscultation bilaterally Abdomen: Normoactive bowel sounds, soft, no tenderness, rebound, or guarding, no masses, no hepatosplenomegaly, no hernias, fundus well below umbilicus, incision clean, dry, and intact Lower extremities: Trace bilateral edema, no erythema
[2024-11-28] MEDS: MAGNESIUM IV 4 GM/100 ML PIGGYBACK IVPB (13:20)
[2024-11-28] MEDS: LACTATED RINGERS 1000 ML 1,000 ML 25 ML IV (13:22)
[2024-11-28] MEDS: NIFEdipine 30 MG TAB.ER.24 PO (13:52)
[2024-11-28] MEDS: MAGNESIUM Infusion 40 GM/1,000 ML IV.SOLN IVPB (13:55)
[2024-11-28] MEDS: IBUPROFEN 600 MG TABLET PO (16:49)
[2024-11-28 19:18] LABS: Hematocrit 43.7 % (33.0-51.0); Hemoglobin* 14.4 gm/dL (12.0-16.0); Mean Corpuscular HGB Conc 33 gm/dL (32-36); Mean Corpuscular Hemoglobin 29 pg (26-34); Mean Corpuscular Volume 87 fL (80-100); Platelet Count* 332 K/uL (140-440); Red Blood Count 5.04 m/uL (4.00-5.20); Slide Review Reflex No; White Blood Count* 7.37 K/uL (4.50-11.00)
[2024-11-28 19:33] LABS: Alanine Aminotransferase* 26 U/L (4-35); Aspartate Amino Transferase* 29 U/L (12-35); Blood Urea Nitrogen* 12 mg/dL (5-24); Creatinine* 0.9 mg/dL (0.5-1.5); Estimated Glomerular Filt Rate 84 ml/min
[2024-11-28 19:36] LABS: Magnesium* 6.6 mg/dL (1.5-2.6)
[2024-11-28] MEDS: ACETAMINOPHEN 500 MG TABLET 1000 MG PO (19:56)
[2024-11-29] VITALS (10 sets, daily range): BP systolic 95–136; BP diastolic 60–81; PULSE 66–87; RESP 14–18; TEMP 36.4–36.7; O2SAT 95–97
[2024-11-29] MEDS: NIFEdipine 30 MG TAB.ER.24 PO ×2 (00:22→19:57)
[2024-11-29] MEDS: IBUPROFEN 600 MG TABLET PO ×3 (00:23→15:34)
[2024-11-29 00:29] LABS: Hematocrit 43.5 % (33.0-51.0); Hemoglobin* 14.4 gm/dL (12.0-16.0); Mean Corpuscular HGB Conc 33 gm/dL (32-36); Mean Corpuscular Hemoglobin 29 pg (26-34); Mean Corpuscular Volume 87 fL (80-100); Platelet Count* 343 K/uL (140-440); Red Blood Count 5.01 m/uL (4.00-5.20); White Blood Count* 7.42 K/uL (4.50-11.00)
[2024-11-29 00:33] LABS: Slide Review Reflex No
[2024-11-29 01:47] LABS: Aspartate Amino Transferase* 27 U/L (12-35); Creatinine* 0.9 mg/dL (0.5-1.5); Estimated Glomerular Filt Rate 84 ml/min
[2024-11-29 01:48] LABS: Alanine Aminotransferase* 24 U/L (4-35); Blood Urea Nitrogen* 13 mg/dL (5-24)
[2024-11-29 01:53] LABS: Magnesium* 7.9 mg/dL (1.5-2.6)
[2024-11-29] MEDS: ACETAMINOPHEN 500 MG TABLET 1000 MG PO ×3 (05:08→19:12)
[2024-11-29 07:09] LABS: Hematocrit 43.7 % (33.0-51.0); Hemoglobin* 14.5 gm/dL (12.0-16.0); Mean Corpuscular HGB Conc 33 gm/dL (32-36); Mean Corpuscular Hemoglobin 29 pg (26-34); Mean Corpuscular Volume 86 fL (80-100); Platelet Count* 338 K/uL (140-440); Red Blood Count 5.09 m/uL (4.00-5.20)
[2024-11-29 07:15] LABS: Slide Review Reflex No
[2024-11-29 07:20] LABS: Alanine Aminotransferase* 24 U/L (4-35); Aspartate Amino Transferase* 26 U/L (12-35); Blood Urea Nitrogen* 13 mg/dL (5-24); Creatinine* 0.8 mg/dL (0.5-1.5); Estimated Glomerular Filt Rate 97 ml/min
[2024-11-29 07:23] LABS: Magnesium* 8.5 mg/dL (1.5-2.6)
[2024-11-29] MEDS: MAGNESIUM Infusion 40 GM/1,000 ML IV.SOLN IVPB (09:07)
--- NOTE | 2024-11-29 09:37 | PM.OBPNVD1 ---
OB - PN:Subj Subjective Date Seen: 11/29/24 Interval history: Megha is a 39-year-old G5 now P5 woman who is status post repeat (her 5th ) with bilateral salpingectomy on 11/24/2024 at 37 weeks, 0 days gestation. She was diagnosed with preeclampsia without severe features prior to that admission. She was discharged on postoperative day 2, 11/26/2024, without any antihypertensive medications. She was readmitted on postoperative day 4 (11/28/24) for preeclampsia with severe features by BP criteria. She was started on magnesium sulfate at admission. Since initiation of magnesium sulfate, she has had no severe range pressures. This morning, she had a blood pressure of 95/60. She had been started on nifedipine ER 30 mg b.i.d., but her dose was held this morning. Her fluid balance since readmission early yesterday afternoon is -2227 mL. She has had 5700 mL of urine output since admission. Her magnesium level this morning was 8.5. Her creatinine was 0.8, down from 0.9 at its highest. All other HELLP labs were normal. Her magnesium infusion rate was decreased from 2 to 1 g an hour. She has a mild headache. Otherwise she has no complaints. She is eager to leave. She denies any chest pain, shortness of breath, right upper quadrant pain, or visual changes. OB - PN: Obj Exam Physical Exam: Vital signs: Temp Pulse Resp BP Pulse Ox O2 Del Method 97.6 F 87 18 118/76 97 Room Air 11/29/24 09:00 11/29/24 09:00 11/29/24 09:00 11/29/24 09:00 11/29/24 09:00 11/29/24 09:00 Narrative: General: Pleasant, no acute distress Heart: Regular rate and rhythm, no murmur or gallop Lungs: Clear to auscultation bilaterally Abdomen: Soft, nontender, 1 cm above umbilicus Lower extremities: No edema or erythema OB - PN: Obj Data Labs Labs: Laboratory Results - last 24 hr 11/28/24 11/28/24 11/29/24 12:05 19:10 00:23 WBC 6.09 7.37 7.42 RBC 4.17 5.04 5.01 Hgb 12.1 14.4 14.4 Hct 36.6 43.7 43.5 MCV 88 87 87 MCH 29 29 29 MCHC 33 33 33 Plt Count 296 332 343 BUN 13 12 13 Creatinine 0.9 0.9 0.9 Estimated GFR 84 84 84 Magnesium 6.6 H* 7.9 H* AST 25 29 27 ALT 19 26 24 11/29/24 07:00 WBC 6.00 RBC 5.09 Hgb 14.5 Hct 43.7 MCV 86 MCH 29 MCHC 33 Plt Count 338 BUN 13 Creatinine 0.8 Estimated GFR 97 Magnesium 8.5 H* AST 26 ALT 24 OB - PN: A/P Delivery Assessment and Plan (1) care and examination of lactating mother: Status: Acute (2) Pre-eclampsia affecting puerperium: Problem details: With severe features based on blood pressure criteria. Status: Acute Assessment and Plan: Continue magnesium sulfate infusion for total 24 hours. Stop early this afternoon. I recommend monitoring of blood pressures into the evening, and if stable, discharge at that time. Plan day: 5
[2024-11-29 13:09] LABS: Hematocrit 44.7 % (33.0-51.0); Hemoglobin* 14.7 gm/dL (12.0-16.0); Mean Corpuscular HGB Conc 33 gm/dL (32-36); Mean Corpuscular Hemoglobin 28 pg (26-34); Mean Corpuscular Volume 86 fL (80-100); Platelet Count* 360 K/uL (140-440); Red Blood Count 5.18 m/uL (4.00-5.20); White Blood Count* 5.97 K/uL (4.50-11.00)
[2024-11-29 13:15] LABS: Slide Review Reflex No
[2024-11-29 13:31] LABS: Alanine Aminotransferase* 23 U/L (4-35); Aspartate Amino Transferase* 23 U/L (12-35); Blood Urea Nitrogen* 13 mg/dL (5-24); Creatinine* 0.9 mg/dL (0.5-1.5); Estimated Glomerular Filt Rate 84 ml/min
[2024-11-29 13:33] LABS: Magnesium* 6.8 mg/dL (1.5-2.6)
--- NOTE | 2024-11-29 18:25 | PM.OBDSVD1 ---
DS: Providers Provider Date Seen: 11/29/24 Date of admission: 11/28/24 12:56 Primary care physician: Not a Local Provider Admitting Clinician: Charlene Donovan MD Attending Physician on discharge: Charlene Donovan MD Date of Discharge: 11/29/24 DS: Diagnosis Discharge Diagnosis (1) Pre-eclampsia affecting puerperium: Status: Acute Problem details: With severe features based on blood pressure criteria. (2) care and examination of lactating mother: Status: Acute (3) Status post repeat low transverse section: Status: Acute Exam Narrative: Exam Narrative: see this morning's note Const: Vital Signs, click to edit/add: Vital Signs - 24 hr 11/28/24 20:00 11/28/24 22:19 11/29/24 00:00 Temperature 98 F 97.5 F L Pulse Rate [Pulse Oximeter] 67 70 76 Respiratory Rate 14 16 15 Blood Pressure [Ri ght Arm] 139/89 128/89 120/81 Pulse Oximetry 99 Oxygen Delivery Me thod Room Air Room Air Room Air 11/29/24 02:00 11/29/24 04:00 11/29/24 06:33 Temperature 97.8 F Pulse Rate [Pulse Oximeter] 67 84 66 Respiratory Rate 14 14 14 Blood Pressure [Ri ght Arm] 109/66 100/63 95/60 Pulse Oximetry 97 95 Oxygen Delivery Me thod Room Air Room Air Room Air 11/29/24 09:00 11/29/24 11:46 11/29/24 13:25 Temperature 97.6 F 97.6 F 98.1 F Pulse Rate [Pulse Oximeter] 87 85 87 Respiratory Rate 18 18 18 Blood Pressure [Ri ght Arm] 118/76 120/72 114/74 Pulse Oximetry 97 96 96 Oxygen Delivery Me thod Room Air Room Air Room Air 11/29/24 15:30 11/29/24 17:32 Temperature Pulse Rate [Pulse Oximeter] Respiratory Rate Blood Pressure [Ri ght Arm] 126/76 117/81 Pulse Oximetry Oxygen Delivery Me thod OB - DS: Summary Hospital Course Hospital Course: Megha is a 39-year-old G5 now P5 woman who is status post repeat (her 5th ) with bilateral salpingectomy on 11/24/2024 at 37 weeks, 0 days gestation. She was diagnosed with preeclampsia without severe features prior to that admission. She was discharged on postoperative day 2, 11/26/2024, without any antihypertensive medications. She was readmitted on postoperative day 4 (11/28/24) for preeclampsia with severe features by BP criteria. She was started on magnesium sulfate at admission. Since initiation of magnesium sulfate, she has had no severe range pressures. This morning, she had a blood pressure of 95/60. She had been started on nifedipine ER 30 mg b.i.d., but her dose was held this morning. Since cessation of magnesium this afternoon, her blood pressures have been low enough to not require treatment. She had massive diuresis on magnesium sulfate infusion. HELLP labs have been normal. Time Spent with Patient Time attestation: Total time spent providing and/or coordinating discharge services: Discharge Plan Discharge Disposition: Home, Self-Care Date of Admission: 11/28/24 12:56 Attending Provider on Discharge: Charlene Donovan Primary Care Provider: Provider,Not a Local Condition: Stable Anticipated Discharge Date/Time: 11/29/24 18:32 Discharge Medications: Continued [id number]-[id number]-NR-omega 3-fat com #1 27-1-300 mg capsule 1 cap PO DAILY acetaminophen 500 mg Tablet 1,000 mg PO Q6H PRN (Reason: Pain) Qty: 0 0RF docusate sodium 100 mg Capsule 100 mg PO DAILY Qty: 90 0RF ibuprofen 600 mg Tablet 600 mg PO Q6H PRN (Reason: Pain) Qty: 60 0RF Discharge Orders: Discharge Order (Routine); Ordered 11/29/24 Ordered By: Charlene Donovan Patient Education: OB High Blood Pressure DC, OB /Breast Feeding Follow Up Appointments: Provider,Not a Local [Primary Care Provider] - Charlene Donovan MD [Staff Physician] - Forms: [place] [employer] Info Instructions
== END 2024-11-29 20:09 | disposition home or self-care (01) | DRG 561 ==
LOC: OB OUT 12:56 → OB 12:56
PROVIDERS: Admitting Provider Obstetrics & Gynecology; Visit Provider Obstetrics & Gynecology
DX: O14.15 Severe pre-eclampsia, complicating the puerperium (principal)
CPT/HCPCS: 36415; 82565; 83735; 84450; 84460; 84520; 85027; A9270; J3475; J7120